=== PATIENT | female | born 1980 | race Two or more races ===

== ENCOUNTER 2024-10-06 03:11 | Emergency (ER) | payer BC ==
[~2024-10-06] VITALS: Ht 154.9 cm; Wt 81.6 kg
[2024-10-06] MEDS ORDERED: SODIUM CHLORIDE 0.45 % 500 ML IV STA (05:05)
[2024-10-06] MEDS ORDERED: ONDANSETRON HCL 2 MG/ML VIAL IV STA (05:05)
[2024-10-06] MEDS ORDERED: FAMOtidine 10 MG/ML (4ML VIAL) IV PUSH STA (05:06)
[2024-10-06] MEDS ORDERED: ONDANSETRON HCL 2 MG/ML VIAL ONE (05:11)
[2024-10-06] MEDS ORDERED: FAMOTIDINE/PF 20 MG/2 ML VIAL ONE (05:11)
== END 2024-10-06 07:21 | disposition home or self-care (01) ==
LOC: ER 03:11
DX: K30 Functional dyspepsia (principal); Z88.2 Allergy status to sulfonamides